=== PATIENT | male | born 1940 | race Asian ===

== ENCOUNTER 2017-08-25 06:37 | Day surgery (SDC) | payer OTHER ==
[~2017-08-25] VITALS: Ht 167.6 cm; Wt 61.4 kg
[~2017-08-25 06:37] MED LIST: SODIUM CHLORIDE 0.9% 1,000 ML IV ONE
[2017-08-25] MEDS ORDERED: ASPI-1182 PO (07:09)
[2017-08-25] MEDS ORDERED: ATOR40TA28 PO (07:09)
[2017-08-25] MEDS ORDERED: GLIP5 PO (07:09)
[2017-08-25] MEDS ORDERED: AMLO-512 PO (07:09)
[2017-08-25] MEDS ORDERED: METF500T4 PO (07:09)
[2017-08-25] MEDS ORDERED: SODIUM CHLORIDE 0.9% 1,000 ML IV ONE (07:12)
[2017-08-25] MEDS ORDERED: FentaNYL CITRATE-PF 100 MCG/2 ML VIAL ONE (07:46)
[2017-08-25] MEDS ORDERED: MIDAZOLAM HCL 2 MG/2 ML VIAL ONE (07:46)
[2017-08-25 07:57] LABS: GLUCOMETER DEV NAME(LOC) PACU 2; GLUCOSE,POINT OF CARE 173 MG/DL (70-110)
[2017-08-25] MEDS ORDERED: MethylPREDNISolone SOD SUCC 125 MG/2 ML VIAL IVP ONE (09:15)
[2017-08-25] MEDS ORDERED: MethylPREDNISolone SOD SUCC 125 MG/2 ML VIAL ONE (09:44)
[2017-08-25] MEDS ORDERED: LIDOCAINE HCL 2% 5 ML JELLY TP ONE (12:00)
[2017-08-25] MEDS ORDERED: BENZOCAINE 20% 50 MCG/SPRAY 57 GM TP ONE (12:00)
[2017-08-25] MEDS ORDERED: OXYGEN THERAPY IH SCH (20:00)
== END 2017-08-25 10:40 | disposition home or self-care (01) ==
LOC: SURGERY 06:37
PROVIDERS: ATTEND Internal Medicine Critical Care Medicine
DX: J38.4 Edema of larynx (principal); B37.0 Candidal stomatitis; J84.111 Idiopathic interstitial pneumonia, not otherwise specified; I10 Essential (primary) hypertension; E11.9 Type 2 diabetes mellitus without complications; I25.2 Old myocardial infarction; M19.90 Unspecified osteoarthritis, unspecified site; Z95.5 Presence of coronary angioplasty implant and graft; Z87.891 Personal history of nicotine dependence; Z72.89 Other problems related to lifestyle; Z79.82 Long term (current) use of aspirin; Z79.84 Long term (current) use of oral hypoglycemic drugs
CPT/HCPCS: 31623; 31624; 71010; 82962; 87015 ×2; 87070; 87077; 87101; 87186; 87205; 87220; 88108; 88312; 93005; 94640; J2250; J2930; J3010; J7030